=== PATIENT | male | born 1945 | race Caucasian/White ===

== ENCOUNTER 2020-09-29 08:50 | Outpatient (RCR) | payer MEDICARE, OTHER, SELFPAY | END 2020-10-24 23:59 | disposition home or self-care (01) | LOC: CR 08:50 | PROVIDERS: Referring Provider Physical Medicine & Rehabilitation; Visit Provider Physical Medicine & Rehabilitation | DX: Z95.1 Presence of aortocoronary bypass graft (principal) | CPT/HCPCS: 93798 ==

== ENCOUNTER 2020-10-25 10:52 | Outpatient (RCR) | payer MEDICARE, OTHER, SELFPAY | END 2020-11-23 23:59 | disposition home or self-care (01) | LOC: CR 10:52 | PROVIDERS: Referring Provider Physical Medicine & Rehabilitation; Visit Provider Physical Medicine & Rehabilitation | DX: Z95.1 Presence of aortocoronary bypass graft (principal) | CPT/HCPCS: 93798 ==

== ENCOUNTER 2020-11-24 11:11 | Outpatient (RCR) | payer MEDICARE, OTHER, SELFPAY | END 2020-12-24 23:59 | disposition home or self-care (01) | LOC: CR 11:11 | PROVIDERS: Referring Provider Physical Medicine & Rehabilitation; Visit Provider Physical Medicine & Rehabilitation | DX: Z95.1 Presence of aortocoronary bypass graft (principal) | CPT/HCPCS: 93798 ==

== ENCOUNTER 2020-12-26 13:33 | Outpatient (RCR) | payer MEDICARE, OTHER, SELFPAY | END 2021-01-24 23:59 | disposition home or self-care (01) | LOC: CR 13:33 | PROVIDERS: Referring Provider Physical Medicine & Rehabilitation; Visit Provider Physical Medicine & Rehabilitation | DX: Z95.1 Presence of aortocoronary bypass graft (principal) | CPT/HCPCS: 93798 ==

== ENCOUNTER 2021-01-26 14:42 | Outpatient (RCR) | payer MEDICARE, OTHER, SELFPAY | END 2021-02-23 23:59 | disposition home or self-care (01) | LOC: CR 14:42 | PROVIDERS: Referring Provider Physical Medicine & Rehabilitation; Visit Provider Physical Medicine & Rehabilitation | DX: Z95.1 Presence of aortocoronary bypass graft (principal) | CPT/HCPCS: 93798 ==

== ENCOUNTER 2021-02-24 10:24 | Outpatient (RCR) | payer SELFPAY | END 2021-03-26 23:59 | disposition home or self-care (01) | LOC: CR 10:24 | PROVIDERS: Referring Provider Physical Medicine & Rehabilitation; Visit Provider Physical Medicine & Rehabilitation | DX: Z95.1 Presence of aortocoronary bypass graft (principal) ==

== ENCOUNTER 2021-03-27 14:24 | Outpatient (RCR) | payer SELFPAY | END 2021-04-25 23:59 | disposition home or self-care (01) | LOC: CR 14:24 | PROVIDERS: Referring Provider Physical Medicine & Rehabilitation; Visit Provider Physical Medicine & Rehabilitation | DX: Z95.1 Presence of aortocoronary bypass graft (principal) ==

== ENCOUNTER 2021-04-26 13:38 | Outpatient (RCR) | payer SELFPAY | END 2021-05-26 23:59 | disposition home or self-care (01) | LOC: CR 13:38 | PROVIDERS: Referring Provider Physical Medicine & Rehabilitation; Visit Provider Physical Medicine & Rehabilitation | DX: Z95.1 Presence of aortocoronary bypass graft (principal) ==

== ENCOUNTER 2021-05-29 11:10 | Outpatient (RCR) | payer SELFPAY | END 2021-06-26 23:59 | disposition home or self-care (01) | LOC: CR 11:10 | PROVIDERS: Referring Provider Physical Medicine & Rehabilitation; Visit Provider Physical Medicine & Rehabilitation | DX: Z95.1 Presence of aortocoronary bypass graft (principal) ==

== ENCOUNTER 2021-09-25 10:01 | Outpatient (RCR) | payer MEDICARE, OTHER, SELFPAY | END 2021-10-24 23:59 | disposition home or self-care (01) | LOC: CR 10:01 | PROVIDERS: PCP Internal Medicine Cardiovascular Disease; Referring Provider Physical Medicine & Rehabilitation; Visit Provider Physical Medicine & Rehabilitation | DX: Z95.5 Presence of coronary angioplasty implant and graft (principal) | CPT/HCPCS: 93798 ==

== ENCOUNTER 2021-10-25 09:37 | Outpatient (RCR) | payer MEDICARE, OTHER, SELFPAY | END 2021-11-23 23:59 | disposition home or self-care (01) | LOC: CR 09:37 | PROVIDERS: PCP Internal Medicine Cardiovascular Disease; Referring Provider Physical Medicine & Rehabilitation; Visit Provider Physical Medicine & Rehabilitation | DX: Z95.5 Presence of coronary angioplasty implant and graft (principal) | CPT/HCPCS: 93798 ==

== ENCOUNTER 2022-08-27 09:37 | Outpatient (RCR) | payer SELFPAY | END 2022-09-23 23:59 | disposition home or self-care (01) | LOC: CR 09:37 | PROVIDERS: PCP Internal Medicine Cardiovascular Disease; Visit Provider Internal Medicine Cardiovascular Disease | DX: Z95.5 Presence of coronary angioplasty implant and graft (principal) ==

== ENCOUNTER 2022-09-24 13:38 | Outpatient (RCR) | payer SELFPAY | END 2022-10-24 23:59 | disposition home or self-care (01) | LOC: CR 13:38 | PROVIDERS: PCP Internal Medicine Cardiovascular Disease; Referring Provider Internal Medicine Cardiovascular Disease; Visit Provider Internal Medicine Cardiovascular Disease | DX: Z95.5 Presence of coronary angioplasty implant and graft (principal) ==

== ENCOUNTER 2022-11-26 14:25 | Outpatient (RCR) | payer SELFPAY | END 2022-12-24 23:59 | disposition home or self-care (01) | LOC: CR 14:25 | PROVIDERS: PCP Internal Medicine Cardiovascular Disease; Referring Provider Internal Medicine Cardiovascular Disease; Visit Provider Internal Medicine Cardiovascular Disease | DX: Z95.5 Presence of coronary angioplasty implant and graft (principal) ==

== ENCOUNTER 2023-07-25 07:06 | Outpatient (CLI) | payer MEDICARE, OTHER, SELFPAY ==
--- NOTE | 2023-07-25 07:22 | MR_ITS ---
WS: [id number] MRI LUMBAR SPINE NONCONTRAST TECHNIQUE: Sagittal T1, T2 and STIR imaging. Axial T1 and T2 imaging. CLINICAL INFORMATION: LUMBAR REGION RADICULOPATHY COMPARISON: None. FINDINGS: Segmentation anomaly at C2-3. Counting performed from the craniocervical junction. Mild lumbar curve. No acute compression. L1-L2: No significant disc bulging. Mild facet arthropathy. Spinal canal and foramen are patent. L2-L3: Slight retrolisthesis. Mild annular bulging. Moderate facet arthropathy. Slight narrowing of t he subarticular recess bilaterally. Mild RIGHT greater than LEFT foraminal narrowing. L3-L4: Mild disc bulging with narrowing subarticular recess bilaterally. Mild facet arthropathy. Sma ll foraminal protrusions with mild LEFT greater than RIGHT foraminal narrowing. L4-L5: Mild annular bulging. Narrowing of the subarticular recess bilaterally. Moderate facet arthrop athy. Mild bilateral foraminal narrowing. L5-S1: Mild disc bulging. Moderate facet arthropathy. Mild LEFT greater than RIGHT foraminal narrowin g. Slight impingement on the traversing S1 nerve roots bilaterally. Visualized pelvic bony structures: Normal. Paravertebral soft tissues: Normal. Mild disc bulging in the cervical spine [employer] imaging at C5-6. IMPRESSION: 1. Mild lumbar curve. No acute compression. No high-grade central canal stenosis. 2. Annular bulging L3-L4 L4-L5 with narrowing of the subarticular recess bilaterally. 3. Disc bulge L5-S1 with slight contact of the traversing S1 nerve roots bilaterally. 4. Mild foraminal narrowing bilateral L3-4, bilateral L4-5, and LEFT greater than RIGHT L5-S1. 5. Moderate facet arthropathy L3-L5.
== END 2023-07-25 07:07 | disposition home or self-care (01) ==
LOC: RAD 07:07
PROVIDERS: PCP Internal Medicine Cardiovascular Disease; Visit Provider Nurse Practitioner Family
DX: M47.26 Other spondylosis with radiculopathy, lumbar region (principal); M51.16 Intervertebral disc disorders with radiculopathy, lumbar region; M51.17 Intervertebral disc disorders with radiculopathy, lumbosacral region; M43.16 Spondylolisthesis, lumbar region
CPT/HCPCS: 72148

== ENCOUNTER → 2024-08-04 09:59 | Outpatient (BNVA) | payer MEDICARE, OTHER, SELFPAY | PROVIDERS: PCP Internal Medicine Cardiovascular Disease; Visit Provider Anesthesiology Pain Medicine | DX: M79.18 Myalgia, other site (principal); M25.552 Pain in left hip; M54.9 Dorsalgia, unspecified; M51.16 Intervertebral disc disorders with radiculopathy, lumbar region; Z87.891 Personal history of nicotine dependence | CPT/HCPCS: 20553; 73502; 99204; J1010; J3490 ==

== ENCOUNTER → 2024-08-17 12:19 | Outpatient (BNVA) | payer MEDICARE, OTHER, SELFPAY | PROVIDERS: PCP Internal Medicine Cardiovascular Disease; Visit Provider Anesthesiology Pain Medicine | DX: M54.9 Dorsalgia, unspecified (principal); M51.16 Intervertebral disc disorders with radiculopathy, lumbar region; M79.18 Myalgia, other site; Z87.891 Personal history of nicotine dependence | CPT/HCPCS: 99214 ==

== ENCOUNTER → 2024-08-19 13:45 | Outpatient (BNVA) | payer MEDICARE, OTHER, SELFPAY | PROVIDERS: PCP Internal Medicine Cardiovascular Disease; Visit Provider Anesthesiology Pain Medicine | DX: M16.12 Unilateral primary osteoarthritis, left hip (principal); Z87.891 Personal history of nicotine dependence | CPT/HCPCS: 20610; 77002; J1010; J3490; J9999 ==

== ENCOUNTER → 2025-03-16 07:50 | Outpatient (BNVA) | payer MEDICARE, OTHER, SELFPAY | PROVIDERS: PCP Internal Medicine Cardiovascular Disease; Visit Provider Anesthesiology Pain Medicine | DX: M47.816 Spondylosis without myelopathy or radiculopathy, lumbar region (principal); M25.552 Pain in left hip; M79.18 Myalgia, other site | CPT/HCPCS: 99214 ==

== ENCOUNTER → 2025-03-31 14:02 | Outpatient (BNVA) | payer MEDICARE, OTHER, SELFPAY | PROVIDERS: PCP Internal Medicine Cardiovascular Disease; Visit Provider Anesthesiology Pain Medicine | DX: M47.816 Spondylosis without myelopathy or radiculopathy, lumbar region (principal) | CPT/HCPCS: 64493; 64494; 64495; J3490; J9999 ==

== ENCOUNTER → 2025-04-13 07:40 | Outpatient (BNVA) | payer MEDICARE, OTHER, SELFPAY | PROVIDERS: PCP Internal Medicine Cardiovascular Disease; Visit Provider Anesthesiology Pain Medicine | DX: M47.816 Spondylosis without myelopathy or radiculopathy, lumbar region (principal); M25.559 Pain in unspecified hip; M79.18 Myalgia, other site | CPT/HCPCS: 99214 ==

== ENCOUNTER → 2025-05-10 12:51 | Outpatient (BNVA) | payer MEDICARE, OTHER, SELFPAY | PROVIDERS: PCP Internal Medicine Cardiovascular Disease; Visit Provider Anesthesiology Pain Medicine | DX: M47.816 Spondylosis without myelopathy or radiculopathy, lumbar region (principal); M25.559 Pain in unspecified hip; M79.18 Myalgia, other site; Z87.891 Personal history of nicotine dependence | CPT/HCPCS: 99213 ==